=== PATIENT | male | born 1960 | race African-American/Black ===

== ENCOUNTER 2021-05-22 13:08 | Emergency (ER) | payer OTHER ==
[~2021-05-22] VITALS: Ht 185.4 cm; Wt 68.0 kg
[2021-05-22] MEDS ORDERED: METFORMIN HCL1000 M2 (14:00)
== END 2021-05-22 23:02 | disposition home or self-care (01) ==
LOC: ER 13:08
DX: S40.012A Contusion of left shoulder, initial encounter (principal); E11.65 Type 2 diabetes mellitus with hyperglycemia; W18.09XA Striking against other object with subsequent fall, initial encounter; Y93.89 Activity, other specified; Y92.018 Other place in single-family (private) house as the place of occurrence of the external cause; Y99.8 Other external cause status; Z79.84 Long term (current) use of oral hypoglycemic drugs

== ENCOUNTER 2021-08-15 18:35 | Emergency (ER) | payer OTHER ==
[~2021-08-15] VITALS: Ht 185.4 cm; Wt 77.1 kg
[~2021-08-15 18:35] MED LIST: METFORMIN HCL1000 M2
== END 2021-08-15 21:12 | disposition home or self-care (01) ==
LOC: ER 18:35
DX: E11.65 Type 2 diabetes mellitus with hyperglycemia (principal)